=== PATIENT | female | born 1950 | race Caucasian/White ===

== ENCOUNTER 2016-07-09 14:10 | Emergency (ER) | payer BC ==
[~2016-07-09] VITALS: Wt 78.0 kg
[2016-07-09] MEDS ORDERED: KETOROLAC 30 MG INJ IM STA (15:19)
[2016-07-09] MEDS ORDERED: IBUPROFEN 600 MG TAB PO ONE (16:00)
[2016-07-09] MEDS ORDERED: IBUP-1542 PO (16:10)
--- NOTE | 2016-07-09 16:17 | ERD ---
ER Documentation Chief Complaint Date/Time DATE: 07/09/16 TIME: 16:12 Chief Complaint NON TRAUMATIC NECKPAIN FOR 2 DAYS. MILD HEADACHE. NO NEURO DEF HPI Patient is a 65-year-old female with a past medical history of HTN and asthma who presents to the emergency department with neck and left shoulder pain 1 week. Patient states that her current pain level is a 6 out of 10. Patient denies any trauma or falls. Patient has normal range of motion of her neck. Patient reports normal range of motion of her bilateral upper extremities. Patient has not taken any pain medication. Patient denies any arm pain, jaw pain , chest pain, shortness of breath, diaphoresis or LOC. Patient does have a mild headache. Pain is in her occipital region left side and radiates into her left shoulder. Patient denies 7 onset. Patient denies any nausea, vomiting, blurry vision. ROS All systems reviewed and are negative except as per history of present illness. Medications Home Meds Active Scripts Ibuprofen* (Ibuprofen*) 600 Mg Tablet, 600 MG PO Q6, #30 TAB Prov:OMEGA MEADE PA-C 07/09/16 Allergies Allergies: Coded Allergies: Penicillin G (Verified Allergy, Unknown, 09/13/08) PMhx/Soc History of Surgery: Yes (LT HAND SX) Anesthesia Reaction: No Hx Neurological Disorder: No Hx Respiratory Disorders: No Hx Cardiac Disorders: Yes (HTN) Hx Psychiatric Problems: No Hx Miscellaneous Medical Probl: No Hx Alcohol Use: No Hx Substance Use: No Hx Tobacco Use: No Smoking Status: Never smoker FmHx Family History: No diabetes Physical Exam Vitals Vital Signs Date Time Temp Pulse Resp B/P Pulse Ox O2 Delivery O2 Flow Rate FiO2 07/09/16 14:13 98.8 69 20 165/82 99 Physical Exam GENERAL: Well-developed, well-nourished email. Appears in no acute distress. HEAD: Normocephalic, atraumatic. EYES: Pupils are equally reactive bilaterally. EOMs grossly intact. No conjunctival erythema. ENT: Moist mucous membranes. No uvula deviation. No kissing tonsils. NECK: Supple. Range of motion of the neck. No meningismus. No cervical midline tenderness. Left trapezius muscle tender to palpation. Pain is reproducible with palpation. LUNG: Clear to auscultation bilaterally. No rhonchi, wheezing, rales or coarse breath sounds. HEART: Regular rate and rhythm. No murmurs, rubs or gallops. BACK: No midline tenderness. EXTREMITIES: Equal pulses bilaterally. No peripheral clubbing, cyanosis or edema. No unilateral leg swelling. NEUROLOGIC: Alert and oriented. Moving all four extremities without any difficulty. Normal speech. Steady gait. SKIN: Normal color. Warm and dry. No rashes or lesions. LEFT UPPER EXTREMITY: No deformity, erythema, ecchymosis or swelling to shoulder and arm. Skin intact. Full ROM of shoulder, elbow, wrist. Tender to palpation of posterior shoulder and trapezius muscles. Sensation intact to light touch. Neurovascularly intact. 2+ RP. Compartments soft. Results 24 hrs Current Medications Medications (Trade) Dose Ordered Sig/Blanca Route PRN Reason Start Time Stop Time Status Last Admin Dose Admin Ketorolac Tromethamine (Toradol) 30 mg ONCE STAT IM 07/09/16 15:19 07/09/16 15:55 DC 07/09/16 15:24 Ibuprofen (Motrin) 600 mg ONCE ONCE PO 07/09/16 16:00 07/09/16 16:00 DC Procedures/MDM MEDICAL DECISION MAKING: This is a 65-year-old female who presents with neck pain and left shoulder pain 1 week. Vital signs were reviewed. Patient is afebrile. Patient is not hypoxic. Given the patient denied any recent trauma or falls, imaging was not obtained. She was given Toradol IM here in the emergency department which did improve her pain. At this time patient's presentation is most consistent with musculoskeletal pain versus muscle spasms. I have a much lower clinical concern for cervical spine dislocation,cervical spine fracture, clavicle fracture, humerus fracture, impingement syndrome, biceps tendonitis, gout, septic joint, torticollis, acute neurologic deficit, CVA. Unable to rule out any ligamentous or tendon injuries at this time. PRESCRIPTIONS: Ibuprofen DISCHARGE: At this time, patient is stable for discharge and outpatient management. RICE therapy and ROM exercises were advised to avoid stiffness. I have instructed the patient to follow-up with his/her primary care physician in 1-2 days. I have discussed with the patient the possibility of needing to see an customer retention specialist for further workup and imaging if the pain persists. I have instructed the patient to promptly return to the ER for any new or worsening symptoms including increased pain, swelling, redness, warmth or fever. The patient and/or family expressed understanding of and agreement with this plan. All questions were answered. Home care instructions were provided. Patients blood pressure was elevated (>120/80) but appears stable without evidence of hypertensive emergency, hypertensive urgency or end-organ failure. I had discussion with the patient about the risks of hypertension. I have advised the patient to follow up with his/her primary care physician for outpatient monitoring and treatment for hypertension in 2-3 days. I have instructed the patient to return to the ER for any new or worsening symptoms including chest pain, shortness of breath, headache, blurred vision, confusion, nausea, vomiting or LOC. Departure Diagnosis: Primary Impression: Neck pain Additional Impression: Muscle spasm Condition: Stable Patient Instructions: Neck Pain, No Trauma Additional Instructions: Llame al doctor JAMIE y tj andrade NATE PARA DENTRO DE 1-2 RODRIGUEZ.Dgale a la secretaria que nosotros le instruimos hacer esta nate.Avise o llame si nath condicin se empeora antes de la nate. Regresa aqui si peor o no mejor. OMEGA MEADE PA-C Jul 09, 2016 16:17 OMEGA MEADE PA-C Jul 09, 2016 16:17
== END 2016-07-09 16:22 | disposition home or self-care (01) ==
LOC: FTE 14:10
DX: M54.2 Cervicalgia (principal); M62.838 Other muscle spasm; I10 Essential (primary) hypertension; J45.909 Unspecified asthma, uncomplicated
CPT/HCPCS: 96372; J1885

== ENCOUNTER 2017-04-08 11:57 | Emergency (ER) | payer BC ==
[~2017-04-08] VITALS: Ht 157.5 cm; Wt 86.6 kg
[~2017-04-08 11:57] MED LIST: IBUP-1542 PO
[2017-04-08 12:03] VITALS: Ht 157.5 cm; Wt 86.6 kg
== END 2017-04-08 15:40 | disposition left against medical advice (07) ==
LOC: E/R 11:57
DX: Z53.21 Procedure and treatment not carried out due to patient leaving prior to being seen by health care provider (principal)

== ENCOUNTER 2017-04-16 12:15 | Emergency (ER) | payer BC, OTHER ==
[~2017-04-16] VITALS: Wt 86.9 kg
[2017-04-16] MEDS ORDERED: ONDANSETRON 4 MG INJ IV STA (14:13)
[2017-04-16] MEDS ORDERED: SOD CHLORIDE 0.9% 1,000 ML IV STA (14:13)
[2017-04-16] MEDS ORDERED: KETOROLAC 15 MG INJ IV STA (14:13)
[2017-04-16 14:25] LABS: BASOPHIL # 0.1 10^3/ul (0.0-0.1); BASOPHILS % 0.8 % (0.0-2.0); EOSINOPHILS # 0.2 10^3/ul (0.0-0.5); EOSINOPHILS % 2.6 % (0.0-7.0); HEMATOCRIT 36.9 % (37.0-47.0); HEMOGLOBIN 12.7 g/dl (12.0-16.0); LYMPHOCYTES % 30.5 % (15.0-51.0); MEAN CORPUSCULAR HEMOGLOBIN 33.1 pg (29.0-33.0); MEAN CORPUSCULAR HGB CONC 34.4 g/dl (32.0-37.0); MEAN CORPUSCULAR VOLUME 96.1 fl (82.0-101.0); MEAN PLATELET VOLUME 10.8 fl (7.4-10.4); MONOCYTE # 0.6 10^3/ul (0.3-0.9); MONOCYTES % 8.4 % (0.0-11.0); NEUTROPHIL # 3.8 10^3/ul (1.6-7.5); NEUTROPHILS % 57.4 % (39.0-77.0); PLATELET COUNT 212 10^3/UL (140-415); RED BLOOD COUNT 3.84 10^6/ul (4.20-5.40); RED CELL DISTRIBUTION WIDTH 12.6 % (11.5-14.5); WHITE BLOOD COUNT 6.6 10^3/ul (4.8-10.8)
[2017-04-16 14:45] LABS: ALBUMIN 3.8 g/dl (3.3-4.9); ALBUMIN/GLOBULIN RATIO 1.02; BILIRUBIN,INDIRECT 0.3 mg/dl (0-1.1); BILIRUBIN,TOTAL 0.3 mg/dl (0.2-1.3); CALCIUM 9.1 mg/dl (8.4-10.2); CREATININE 0.94 mg/dl (0.44-1.00); POTASSIUM 3.7 mmol/L (3.5-5.1); TOTAL PROTEIN 7.5 g/dl (6.1-8.1)
[2017-04-16 14:51] LABS: ADD UMIC YES; UR ASCORBIC ACID NEGATIVE (NEGATIVE); UR BILIRUBIN (Dip) NEGATIVE (NEGATIVE); UR BLOOD (Dip) 1+ mg/dL (NEGATIVE); UR CLARITY CLEAR (CLEAR); UR COLOR COLORLESS (YELLOW); UR GLUCOSE (Dip) NEGATIVE (NEGATIVE); UR KETONES (Dip) NEGATIVE (NEGATIVE); UR LEUKOCYTE ESTERASE (Dip) NEGATIVE Leu/ul (NEGATIVE); UR NITRITE (Dip) NEGATIVE (NEGATIVE); UR RBC 0 /HPF (0-5); UR SPECIFIC GRAVITY (Dip) 1.002 (1.003-1.030); UR TOTAL PROTEIN (Dip) NEGATIVE (NEGATIVE); UR UROBILINOGEN (Dip) NEGATIVE (NEGATIVE)
--- NOTE | 2017-04-16 15:08 | RADRPT ---
PROCEDURE: CT ABDOMEN AND PELVIS WITHOUT CONTRAST. CLINICAL INDICATION: Abdominal pain TECHNIQUE: CT scan of the abdomen and pelvis without contrast was performed on a multidetector hig h-resolution CT scanner. The patient was scanned without intravenous contrast. Coronal and sagittal reformatted images were obtained from the axial source images. Images were reviewed on a high-resol [email or web address] PACS workstation. The total exam CTDI equals 19.3 mGy and the total exam DLP equals 1089 mGy-c m. One or more of the following dose reduction techniques were used: Automated exposure control. Adjustment of the mA and/or kV according to patient size. Use of iterative reconstruction technique. DICOM images are available COMPARISON: None FINDINGS: CT abdomen: The lung bases are clear. The heart size is within limits. There is no significant pericardial effus ion. Hepatic morphology is within limits. There is diffuse fatty infiltration of the liver. Multiple gall stones are noted within the lumen of the gallbladder. No intrahepatic or extrahepatic biliary dilata tion. The spleen and pancreas are within normal limits. Both adrenal glands are within normal limits. Both kidneys are in normal anatomic position. No evidence of obstruction or hydronephrosis. There ar e bilateral extrarenal pelvis. The visualized GI tract demonstrate normal caliber loops of small and large bowel. No evidence of ob struction. Stool filled loops of large bowel identified. The appendix is within normal limits. There is colonic diverticulosis. The unenhanced aorta is unremarkable. No significant retroperitoneal lymphadenopathy. CT pelvis: The bladder is distended but otherwise appears to within limits. The uterus is unremarkable. Rectosi gmoid colon is within limits. No significant free fluid. No significant pelvic lymphadenopathy. The visualized osseous structures demonstrate degenerate disease secondary to a broad-based posterio r disc bulge at the levels of L4-L5 and L5-S1. IMPRESSION: 1. Cholelithiasis. No gross CT evidence of inflammatory changes as time. Consider correlation with u ltrasound if clinically indicated. 2. Fatty liver. 3. No evidence of bowel obstruction. The appendix is within normal limits. Colonic diverticulosis. S tool filled loops of large bowel suggestive of constipation. 4. Multilevel degenerative disease. Broad-based posterior disc bulges at the levels of L4-L5 and L5- S1 with bilateral neural foramen stenosis and spinal canal stenosis. RPTAT: AAPP Mikki Bocanegra, Physician Date Time Electronically viewed and signed by Mikki Bocanegra Physician on 04/16/2017 15:08 JL/
--- NOTE | 2017-04-16 15:39 | ERD ---
ER Documentation Chief Complaint Chief Complaint abd pain x 10 days, lower back pain, nausea HPI 66-year-old woman complains of suprapubic abdominal discomfort 10 days, she was recently diagnosed with urinary tract infection and is currently using antibiotics. She also complains of low back pain although she has had this pain for many years, patient denies epigastric or right upper quadrant abdominal pain, no fevers or chills, no hematuria, no chest pain or shortness of breath. Patient has not been using analgesics for her symptoms. ROS All systems reviewed and are negative except as per history of present illness. Medications Home Meds Active Scripts Ibuprofen* (Ibuprofen*) 600 Mg Tablet, 600 MG PO Q8 for PAIN AND/OR INFLAMMATION , #30 TAB Prov:FAWAD MARTINI MD 04/16/17 PMhx/Soc Recent UTI currently using antibiotics Hx Miscellaneous Medical Probl: Yes (HTN . HYPOTHYROID) Hx Alcohol Use: No Hx Substance Use: No Hx Tobacco Use: No Smoking Status: Never smoker Physical Exam Vitals Vital Signs Date Time Temp Pulse Resp B/P Pulse Ox O2 Delivery O2 Flow Rate FiO2 04/16/17 15:58 74 20 117/64 99 04/16/17 12:22 98.5 76 20 125/71 98 Physical Exam GENERAL: Well-developed, well-nourished, well-hydrated, in no apparent distress , looks nontoxic in appearance HEENT: Moist mucous membranes, pink conjunctiva, no cervical spine tenderness or step-off deformities, no goiter, no jaundice or icterus, extraocular movements intact without pain. No submandibular induration, and no pharyngeal erythema NEURO: Alert and oriented 3, cranial nerves II through XII intact bilaterally, pupils equal round reactive to light, no focal deficits or facial asymmetry, sensation intact distally Strength 5/5 in upper and lower extremities bilaterally CARDIAC: Regular rate and rhythm, no murmurs rubs or gallops LUNGS: Clear bilaterally no wheezing crackles or stridor ABDOMEN: Soft nontender, no guarding, no rigidity, no rebound, no psoas sign no obturator sign. Normoactive bowel sounds SKIN: Warm and dry to touch, no abrasions, contusions, or hematomas, no lacerations, no ecchymosis, no target lesions, and without ulcers EXTREMITIES: No clubbing cyanosis or edema, calves are bilaterally symmetrical, no Homans sign, no popliteal cord sign. Distal pulses equal and bilateral PSYCH: Normal affect without agitation or irritability Result Diagram: 04/16/17 1405 04/16/17 1405 Results 24 hrs Laboratory Tests Test 04/16/17 14:05 04/16/17 14:22 White Blood Count 6.610^3/ul Red Blood Count 3.8410^6/ul Hemoglobin 12.7g/dl Hematocrit 36.9% Mean Corpuscular Volume 96.1fl Mean Corpuscular Hemoglobin 33.1pg Mean Corpuscular Hemoglobin Concent 34.4g/dl Red Cell Distribution Width 12.6% Platelet Count 72416^3/UL Mean Platelet Volume 10.8fl Neutrophils % 57.4% Lymphocytes % 30.5% Monocytes % 8.4% Eosinophils % 2.6% Basophils % 0.8% Nucleated Red Blood Cells % 0.0/100WBC Neutrophils # 3.810^3/ul Lymphocytes # 2.010^3/ul Monocytes # 0.610^3/ul Eosinophils # 0.210^3/ul Basophils # 0.110^3/ul Nucleated Red Blood Cells # 0.010^3/ul Sodium Level 138mmol/L Potassium Level 3.7mmol/L Chloride Level 101mmol/L Carbon Dioxide Level 29mmol/L Anion Gap 12 Blood Urea Nitrogen 15mg/dl Creatinine 0.94mg/dl Glucose Level 103mg/dl Calcium Level 9.1mg/dl Total Bilirubin 0.3mg/dl Direct Bilirubin 0.00mg/dl Indirect Bilirubin 0.3mg/dl Aspartate Amino Transf (AST/SGOT) 24IU/L Alanine Aminotransferase (ALT/SGPT) 28IU/L Alkaline Phosphatase 89IU/L Total Protein 7.5g/dl Albumin 3.8g/dl Globulin 3.70g/dl Albumin/Globulin Ratio 1.02 Lipase 270U/L Urine Color COLORLESS Urine Clarity CLEAR Urine pH 6.0 Urine Specific [place] 1.002 Urine Ketones NEGATIVEmg/dL Urine Nitrite NEGATIVEmg/dL Urine Bilirubin NEGATIVEmg/dL Urine Urobilinogen NEGATIVEmg/dL Urine Leukocyte Esterase NEGATIVELeu/ul Urine Microscopic RBC 0/HPF Urine Microscopic WBC 0/HPF Urine Hemoglobin 1+mg/dL Urine Glucose NEGATIVEmg/dL Urine Total Protein NEGATIVEmg/dl Current Medications Medications (Trade) Dose Ordered Sig/Blanca Route PRN Reason Start Time Stop Time Status Last Admin Dose Admin Sodium Chloride (NS) 1,000 ml @ 1,000 mls/hr Q1H STAT IV 04/16/17 14:13 04/16/17 15:12 DC 04/16/17 14:32 Ondansetron HCl (Zofran Inj) 4 mg ONCE STAT IV 04/16/17 14:13 04/16/17 14:14 DC 04/16/17 14:32 Ketorolac Tromethamine (Toradol) 15 mg ONCE STAT IV 04/16/17 14:13 04/16/17 14:14 DC 04/16/17 14:32 Procedures/MDM I administered 1 L normal saline intravenously, Zofran 4 mg IV, Toradol [address] scan of the abdomen and pelvis was performed: IMPRESSION: 1. Cholelithiasis. No gross CT evidence of inflammatory changes as time. Consider correlation with ultrasound if clinically indicated. 2. Fatty liver. 3. No evidence of bowel obstruction. The appendix is within normal limits. Colonic diverticulosis. Stool filled loops of large bowel suggestive of constipation. 4. Multilevel degenerative disease. Broad-based posterior disc bulges at the levels of L4-L5 and L5-S1 with bilateral neural foramen stenosis and spinal canal stenosis CBC and electrolytes are normal, liver function tests were normal, troponin was negative. Urine analysis was negative for infection. Differential diagnoses considered, included but not limited to acute coronary syndrome, pulmonary embolism, aortic dissection, abdominal aortic aneurysm, sepsis, stroke, meningitis, encephalitis, pneumonia, appendicitis, cholecystitis , bowel obstruction, pyelonephritis, nephrolithiasis, cystitis, as well as metabolic, hematologic, and electrolyte abnormalities. As well as abscess, cellulitis, fractures, and dislocations. Patient feels much better at this time, and vital signs are normal, symptoms have improved. I did give strict instructions to return to the ED if symptoms continue or worsen, patient will otherwise follow-up with primary care physician. Patient understood instructions and agreed to plan. Disclaimer: Inadvertent spelling and grammatical errors are likely due to EHR/ dictation software use and do not reflect on the overall quality of patient care. Also, please note that the electronic time recorded on this note does not necessarily reflect the actual time of the patient encounter. Departure Diagnosis: Primary Impression: Abdominal pain Abdominal location: lower abdomen, unspecified Qualified Code: R10.30 - Lower abdominal pain Additional Impressions: UTI (urinary tract infection) Urinary tract infection type: acute cystitis Hematuria presence: without hematuria Qualified Code: N30.00 - Acute cystitis without hematuria Lumbar back sprain Encounter type: initial encounter Qualified Code: S33.5XXA - Lumbar sprain, initial encounter Condition: Good FAWAD MARTINI MD Apr 16, 2017 15:39
[2017-04-16] MEDS ORDERED: IBUP-1542 PO (15:41)
[2017-04-16 15:58] VITALS: BP 117/64; PULSE 74; RESP 20
== END 2017-04-16 15:58 | disposition home or self-care (01) ==
LOC: E/R 12:15 → MERGE 12:15 → E/R 15:58
DX: N30.00 Acute cystitis without hematuria (principal); S33.5XXA Sprain of ligaments of lumbar spine, initial encounter; I10 Essential (primary) hypertension; E03.9 Hypothyroidism, unspecified; X58.XXXA Exposure to other specified factors, initial encounter; Y92.9 Unspecified place or not applicable
CPT/HCPCS: 36415; 74176; 80053; 81001; 83690; 85025; 87086; 96374; 96375; 99285; J1885; J2405; J7030

== ENCOUNTER 2017-11-01 07:20 | Day surgery (SDC) | END 2017-11-01 13:00 | disposition home or self-care (01) ==